=== PATIENT | male | born 1995 | race Caucasian/White ===

== ENCOUNTER 2017-08-09 14:21 | Emergency (ER) | payer OTHER ==
[2017-08-09] MEDS: ADACEL/BOOSTRIX VACCINE (DIPHTH/PERTUSS/ACELL/TETANUS)0.5ML SYR (90715) IM (14:58)
== END 2017-08-09 15:54 | disposition home or self-care (01) ==
LOC: M ED 14:21
DX: S49.91XA Unspecified injury of right shoulder and upper arm, initial encounter (principal); T14.8XXA Other injury of unspecified body region, initial encounter; V20.4XXA Motorcycle driver injured in collision with pedestrian or animal in traffic accident, initial encounter; Y92.410 Unspecified street and highway as the place of occurrence of the external cause
CPT/HCPCS: 90715

== ENCOUNTER → 2019-07-22 | Outpatient (CLI) | payer OTHER ==
[~2019-07-22] MED LIST: IBUP-1114 PO; LORA-243 PO
== END ==
LOC: M LABSMTC 11:01
PROVIDERS: ATTEND Anesthesiology
DX: Z01.818 Encounter for other preprocedural examination (principal); Z11.59 Encounter for screening for other viral diseases
CPT/HCPCS: C9803; U0003

== ENCOUNTER 2019-07-25 09:19 | Inpatient (IN) | payer OTHER ==
--- NOTE | 2019-07-21 09:49 | HPE ---
DATE OF ANTICIPATED ADMISSION: 07/25/2019 ATTENDING PHYSICIAN: Ky Hendricks MD CHIEF COMPLAINT: Neck pain with right upper extremity radiculopathy. HISTORY: The patient is a pleasant 23-year-old male with 2 years' history of neck pain with right upper extremity radiculopathy. He has failed to improve with conservative measures. He consented for an elective anterior cervical decompression and fusion procedure with Dr. Hendricks at C5-6 and C6-7 due to his continued symptoms. CHRONIC MEDICAL CONDITIONS: Seasonal allergies. PAST SURGICAL HISTORY: Septoplasty, inguinal hernia, tonsillectomy and adenoidectomy, wisdom tooth extraction. CURRENT MEDICATIONS: - Claritin as needed ALLERGIES: There are no known drug allergies. SOCIAL HISTORY: The patient did use nicotine patches but has not used them within the last month. He drinks approximately a six-pack of beer per week. He does live at home with his parents. REVIEW OF SYSTEMS: The patient denies fevers, chills, nausea, vomiting, or diarrhea. Denies chest pain, shortness of breath, lightheadedness, dizziness, or headaches. Denies any abdominal pain. He denies any recent upper respiratory or urinary tract infection symptoms. He does have continued neck pain with right upper extremity radiculopathy. PHYSICAL EXAMINATION: General: Well-nourished, well-developed male in no apparent distress. He is alert, oriented, and cooperative. Mood and affect are appropriate. Vital signs: Height 5 feet 6 inches, weight 155 pounds, temperature 97.7, blood pressure 120/80, respirations 18, heart rate 46. Neck: Supple without lymphadenopathy. Heart: Regular rate and rhythm. Lungs: Clear to auscultation bilaterally. Abdomen: Abdomen is soft. Bowel sounds are present. There is no tenderness to palpation. Musculoskeletal: Range of motion of the neck is good, about 55 degrees in either direction with some neck pain when turning his head to the right and tucking his chin for a positive Spurling maneuver. There is pain at the right cervical spine over the trapezius. He does have weakness of the triceps, about 4/5 on the right compared to 5/5 on the left. Deep tendon reflexes were trace at the biceps, triceps, and brachial radialis bilaterally. Slightly altered with decreased sensation towards the ulnar half of the hand and ulnar three digits to light touch. Good motion of the fingers. No triggering. Good motion of the elbow. Good motion of the shoulder. No clonus, no Gordon's, no wide-based gait. IMPRESSION: Cervical spondylosis with degenerative change at C5-6 and C6-7 with disc herniation to the right at C6-7 producing cervical spinal stenosis and right upper extremity radiculopathy. PLAN: The patient has consented for an elective anterior cervical decompression and fusion at C6-7 and also C5-[address] Hendricks. The patient understands to be nothing by mouth after midnight the night prior to surgery. He will avoid any antiinflammatories until instructed it is safe to take them. MTDD
[~2019-07-25] VITALS: Ht 167.6 cm; Wt 71.2 kg
[~2019-07-25 09:19] MED LIST changes: +ACETAMINOPHEN 1000MG 100ML IV BTL (OFIRMEV) (J0131 PER 10MG) As Ordered ONE; +LIDOCAINE 1% MDV 20ML VIAL SQ PRN; +LIDOCAINE 2% 100MG/5ML SDV (FOR ANES.) As Ordered ONE; +LR 1,000 ML IV ONE; +MIDAZOLAM INJ 2MG/2ML VIAL (J2250 PER 1MG) As Ordered ONE; +ONDANSETRON 4MG/2ML VIAL As Ordered ONE; +ROCURONIUM BROMIDE 50 MG/5 ML VIAL As Ordered ONE; +dexameTHASONE 4 MG/ML 1ML VIAL (J1100 PER 1MG) As Ordered ONE; +fentaNYL 250 MCG/5 ML INJECTION (J3010) As Ordered ONE; +propofoL 200 MG/20 ML VIAL As Ordered ONE
[2019-07-25] MEDS ORDERED: PERCOCET 5MG/325MG TAB PO ONE (10:00)
[2019-07-25] MEDS ORDERED: GABAPENTIN 300 MG CAP PO ONE (10:00)
[2019-07-25] MEDS ORDERED: CelecoXIB (CeleBREX) 100 MG CAP PO ONE (10:00)
[2019-07-25] MEDS ORDERED: ceFAZolin SOD 2 GM in IV 1 EA IV ONE ×2 (10:00→18:00)
[2019-07-25] MEDS ORDERED: THROMBIN SOLN 20,000 UNITS KIT As Ordered ONE (11:18)
[2019-07-25] MEDS ORDERED: BACITRACIN PWD 50,000 UNITS VIAL As Ordered ONE (11:18)
[2019-07-25] MEDS ORDERED: LIDOCAINE W/EPINEPHRINE 1% 20ML VIAL As Ordered ONE (11:18)
[2019-07-25] MEDS ORDERED: dexameTHASONE 4 MG/ML 1ML VIAL (J1100 PER 1MG) As Ordered ONE (12:09)
[2019-07-25] MEDS ORDERED: ePHEDrine SULFATE 25 MG/5 ML(5MG/ML) SYRINGE As Ordered ONE (12:22)
[2019-07-25] MEDS ORDERED: propofoL 200 MG/20 ML VIAL As Ordered ONE (12:27)
[2019-07-25] MEDS ORDERED: SUGAMMADEX SODIUM 500 MG/5 ML VIAL (BRIDION) As Ordered ONE (12:27)
[2019-07-25] MEDS ORDERED: HYDROmorphone HCL 2 MG/ML 1ML VIAL (J1170) As Ordered ONE (12:28)
[2019-07-25] MEDS ORDERED: ROCURONIUM BROMIDE 50 MG/5 ML VIAL As Ordered ONE (12:50)
[2019-07-25] MEDS ORDERED: HYDROMORPHONE HCL 0.5 MG/ 0.5 ML SYRINGE (J1170 PER 1) IV PRN ×2 (14:45)
[2019-07-25] MEDS ORDERED: LR 1,000 ML IV SCH ×2 (14:45→16:00)
[2019-07-25] MEDS ORDERED: ONDANSETRON 4MG/2ML VIAL IV PRN (14:45)
[2019-07-25] MEDS ORDERED: PERCOCET 5MG/325MG TAB PO PRN ×2 (14:45)
[2019-07-25] MEDS: fentaNYL 100 MCG/2 ML INJECTION (J3010) IV PRN ×4 (14:55→15:15)
[2019-07-25] MEDS: oxyCODONE 5MG TAB PO PRN ×2 (14:55→15:25)
[2019-07-25 16:00] VITALS: BP 133/74
[2019-07-25 16:24] VITALS: BP 131/73
--- NOTE | 2019-07-25 16:42 | REP ---
CERVICAL SPINE: TWO VIEWS. INTRAOPERATIVE. HISTORY: Right C5-6 and C7 anterior cervical discectomy and fusion. FINDINGS: Initial portable cross-table lateral view time stamped 12:49 p.m. demonstrates an intraoperative probe at the anterior aspect of the C6-7 disc. The C6-7 disc is narrowed. Oropharyngeal and orotracheal tubes are noted. A second portable cross-table lateral view time stamped 2:07 p.m. demonstrates ventral discectomy and fusion plate in place C5 through C7 in good alignment. Electronically Signed by Ilya Pfeiffer MD 07/25/2019 04:57 P
[2019-07-25 17:28] VITALS: BP 130/71
[2019-07-26] MEDS ORDERED: METAMUCIL (PSYLLIUM) PACKET PO SCH (09:00)
[2019-07-26] MEDS ORDERED: LORATADINE 10 MG TAB PO SCH (09:00)
--- NOTE | 2019-07-27 13:25 | RO ---
DATE OF PROCEDURE: 07/25/2019 PREOPERATIVE DIAGNOSIS: Right upper extremity radiculopathy secondary to disc herniation at C6-C7, cervical spondylosis C5-C6. POSTOPERATIVE DIAGNOSIS: Right upper extremity radiculopathy secondary to disc herniation at C6-C7, cervical spondylosis C5-C6. PROCEDURE PERFORMED: Anterior cervical discectomy and fusion procedure at C5-6, anterior cervical decompression and fusion procedure at C6-7, structural allograft for spine surgery used at C5-C6, C6-C7, application of intercervical instrumentation C5-C6-C7. SURGEON: Ky Hendricks MD [facility] DIRECTOR: HUGH Laurent ANESTHESIA: General. Estimated blood loss less than 40 mL. No complications. INDICATIONS: Right upper extremity radiculopathy for approximately 1 year preoperatively. The patient has elected for operative intervention. MRI evidence of the above pathology. Components used include DePuy Rivanna 30 mm plate, 14 mm screws, the structural allograft VG2 size 4 x 8 at C5-C6, size 5 x 7 at C6-C7. Consent reviewed in detail including a oracio discussion of the pathology involved, the procedure proposed, alternatives including doing nothing and risks including, but not limited to, pain, failure, infection, bleeding, blood loss, incomplete relief of symptoms, nerve injury, infection or other problems. Also talked with the patient preoperatively about adjacent level risk considering his young age. The patient agrees to proceed. OPERATIVE COURSE: Identified in holding area. Site side verified. Brought to the operating room. Once anesthesia was administered he was positioned in the usual fashion for exposure of the cervical spine for an anterior cervical procedure. Next, once I and the cold reduction roller were comfortable with the patient's positioning he was then sterilely prepped and draped in the usual fashion. Head halter traction had been applied. Next, time-out was accomplished. I stood on the patient's right side. Mr. Allen stood on the left side. Incision outlined with a marking pen, infiltrated with 1% lidocaine with epinephrine. Right-sided approach incision made with a #10 blade knife developed down through skin and subcuticular tissues. Platysma was identified, divided using bipolar cautery and tenotomy scissors. Next, dissection continued. Sternocleidomastoid identified. Omohyoid identified and divided. Carotid sheath identified and protected. Dissection continued medial to the carotid sheath down to the prevertebral fascia. The prevertebral fascia was carefully elevated using tenotomy scissors as well as the peanut and S retractors. Mr. Allen secured the S retractors. Next, I placed a Bayonet spinal needle at the C6-C7 level. We obtained a cross-table lateral x-ray that verified our level. Next, the dissection was further developed exposing C5-C6. The longus colli was elevated at its medial border. Distractions pins were placed across C6-C7. The anulus was opened with an #11 blade. Shadow-Line retractor was utilized. Next, disc material was removed using pituitaries, followed by curved curettes removing cartilaginous endplate. Next, oval bur was utilized to square the endplate developed dissection down to posterior longitudinal ligament (PLL). PLL was elevated using curved curettes and removed using #1 and #2 Kerrison. Next, rasps were utilized for a 5 x 7. 5 x 7 sound utilized. Selected 5 x 7 graft. 5 x7 graft implanted, tamped into place. Next, inferior distraction pin removed. Hole plugged with wax. Moved the retractor system up to the C5-C6 level. Placed distraction pin at C5 distracted across C5-C6. Removed the annulus C5-C6 with #11 blade, disc material using pituitaries. Curved curettes were utilized. Oval bur was utilized. Dissection continued down to PLL. PLL was not removed at C5-C6. Next, irrigation was accomplished. Rasp was utilized. 4 x 6 sound, 4 x 6 graft was obtained and tamped into placed. Next, distraction pins were removed. Holes plugged with wax. Mr. Allen positioned S retractors while I utilized the oval bur to further contour the anterior vertebral column to receive the 30 mm plate. 30 mm plate was applied, secured by drilled and placing the appropriate 14 mm screws at each level. Locking device was engaged. Irrigation was accomplished. We inspected for bleeding. A cross-table lateral x-ray was taken. Irrigation was accomplished using concentrated bacitracin. Next, platysma reapproximated. Deep dermis reapproximated. Dermabond utilized on skin. Forest collar applied. Extubated. Moved to recovery room. Good condition. Voiced improvement in arm symptoms in recovery room. Mr. Allen was present and participated in the entirety of the case in the capacity of elder assistant. For further details please refer to the medical record.
== END 2019-07-25 18:45 | disposition home or self-care (01) | DRG 472 ==
LOC: M OR 09:19 → M MS5PR 15:40
PROVIDERS: ADMIT Orthopaedic Surgery; ATTEND Orthopaedic Surgery
PROC: 0RB30ZZ Excision of Cervical Vertebral Disc, Open Approach (ICD-10-PCS; 2019-07-25)
PROC: 0RG20K0 Fusion of 2 or more Cervical Vertebral Joints with Nonautologous Tissue Substitute, Anterior Approach, Anterior Column, Open Approach (ICD-10-PCS; principal; 2019-07-25 11:15)
DX: M47.22 Other spondylosis with radiculopathy, cervical region (principal); M50.022 Cervical disc disorder at C5-C6 level with myelopathy; M50.023 Cervical disc disorder at C6-C7 level with myelopathy; J30.2 Other seasonal allergic rhinitis